=== PATIENT | male | born 1945 | race African-American/Black ===

== ENCOUNTER 2017-06-23 12:59 | Emergency (ER) | payer MEDICARE, OTHER ==
--- NOTE | 2017-06-23 14:15 | ER Document Report ---
ED General - General Mode of Arrival: Ambulatory Information source: Patient <BEN LANGSTON - Last Filed: 06/23/17 15:16> - General TRAVEL OUTSIDE OF THE [place] IN LAST 30 DAYS: No <CESAR SCALES - Last Filed: 06/23/17 16:25> - General Chief Complaint: High Blood Pressure Stated Complaint: BLOOD PRESSURE ISSUES Time Seen by Provider: 06/23/17 13:23 Notes: Patient is a 72 year old male presenting to the emergency department complaining of high blood pressure. Patient states he took his blood pressure this morning and found it to be extremley high and proceeded to come to the emergnecy room. Patient denies any symptoms. (BEN LANGSTON) Specifically denies any chest pain, blurred vision, headache, focal weakness. ( CESAR SCALES) - Related Data Allergies/Adverse Reactions: No Known Allergies Allergy (Verified 06/23/17 12:59) Past Medical History - General Information source: Patient - Social History Cigarette use (# per day): No Chew tobacco use (# tins/day): No Frequency of alcohol use: None Family History: Reviewed & Not Pertinent <BEN LANGSTON - Last Filed: 06/23/17 15:16> - Social History Smoking Status: Unknown if Ever Smoked Family History: Reviewed & Not Pertinent Patient has suicidal ideation: No Patient has homicidal ideation: No - Past Medical History Cardiac Medical History: Reports: Hx Hypertension Neurological Medical History: Reports: Hx Cerebrovascular Accident Renal/ Medical History: Denies: Hx Peritoneal Dialysis <CESAR SCALES - Last Filed: 06/23/17 16:25> Review of Systems - Review of Systems Constitutional: No symptoms reported EENT: No symptoms reported Cardiovascular: No symptoms reported Respiratory: No symptoms reported Gastrointestinal: No symptoms reported Genitourinary: No symptoms reported Male Genitourinary: No symptoms reported Musculoskeletal: No symptoms reported Skin: No symptoms reported Hematologic/Lymphatic: No symptoms reported Neurological/Psychological: No symptoms reported -: Yes All other systems reviewed and negative <BEN LANGSTON - Last Filed: 06/23/17 15:16> Physical Exam <BEN LANGSTON - Last Filed: 06/23/17 15:16> <CESAR SCALES - Last Filed: 06/23/17 16:25> - Vital signs Vitals: Temp Pulse Resp BP Pulse Ox 97.6 F 49 L 16 147/88 H 100 06/23/17 13:13 06/23/17 13:13 06/23/17 13:13 06/23/17 13:13 06/23/17 13:13 - Notes Notes: GENERAL: Alert, interacts well. No acute distress. HEAD: Normocephalic, atraumatic. EYES: Pupils equal, round, and reactive to light. Extraocular movements intact. ENT: Oral mucosa moist, tongue midline. NECK: Full range of motion. Supple. Trachea midline. LUNGS: Clear to auscultation bilaterally, no wheezes, rales, or rhonchi. No respiratory distress. HEART: Regular rate and rhythm. No murmurs, gallops, or rubs. ABDOMEN: Soft, non-tender. Non-distended. Bowel sounds present in all 4 quadrants. EXTREMITIES: Moves all 4 extremities spontaneously. Able to ambulate around the room. NEUROLOGICAL: Alert and oriented x3. Normal speech. PSYCH: Normal affect, normal mood. SKIN: Warm, dry, normal turgor. No rashes or lesions noted. (BEN LANGSTON) Course <BEN LANGSTON - Last Filed: 06/23/17 15:16> <CESAR SCALES - Last Filed: 06/23/17 16:25> - Re-evaluation Re-evalutation: 06/23/17 14:13 Asymptomatic hypertension, blood pressure is normalized without any intervention , only abnormal finding on physical exam is bradycardia, patient is aware that he has this however given his blood pressure issue and the fact is now normalized I think it is prudent to check an EKG, EKG was checked and reveals sinus bradycardia without any concerning blocks or delays. No evidence of ischemia. Patient will be discharged to home, asked to continue tracking his blood pressure, asked to return for any symptoms. Patient and friend at bedside in agreement. (CESAR SCALES) - Vital Signs Vital signs: Temp Pulse Resp BP Pulse Ox 97.6 F 48 L 16 146/105 H 100 06/23/17 14:27 06/23/17 14:27 06/23/17 13:13 06/23/17 14:27 06/23/17 14:27 - EKG Interpretation by Me Additional EKG results interpreted by me: 06/23/17 14:13 EKG shows sinus bradycardia at a rate of 44 bpm, left axis deviation, normal intervals, no ST segment elevations or depressions, no T-wave inversions per my interpretation. (CESAR SCALES) Discharge <BEN LANGSTON - Last Filed: 06/23/17 15:16> <CESAR SCALES - Last Filed: 06/23/17 16:25> - Discharge Clinical Impression: Asymptomatic hypertension, Sinus bradycardia Condition: Stable Disposition: HOME, SELF-CARE Additional Instructions: Please continue taking your blood pressure medications as prescribed. Please take your blood pressure every day as instructed by her doctor. Please give them the blood pressure records that you have been keeping, this may help them to further adjust your blood pressure medications. As you are not having any symptoms today there is no indication to acutely treat your blood pressure today. Please see your primary care physician within the next week to arrange a follow-up appointment for your elevated blood pressure. Should he develop any symptoms at any time such as headache, dizziness, chest pain, difficulty moving or any new or concerning symptoms please return to emergency department immediately. Referrals: ESTELLE TAVERA MD [Primary Care Provider] - Follow up in 1 week Scribe Attestation: 06/23/17 16:25 I personally performed the services described in the documentation, reviewed and edited the documentation which was dictated to the scribe in my presence, and it accurately records my words and actions. (CESAR SCALES) Scribe Documentation - Scribe Written by David:: David Hare, 06/23/2017 15:30 acting as scribe for :: Renny <BEN LANGSTON - Last Filed: 06/23/17 15:16>
[2017-06-23 14:28] VITALS: BP 146/105
--- NOTE | 2017-06-23 18:49 | EKG REPORT ---
SEVERITY:- ABNORMAL ECG - SINUS BRADYCARDIA LEFT AXIS DEVIATION = [facility] : Confirmed by: William Cha MD 23-Jun-2017 18:48:53
== END 2017-06-23 14:25 | disposition home or self-care (01) ==
LOC: ER 12:59
DX: I10 Essential (primary) hypertension (principal); R00.1 Bradycardia, unspecified
CPT/HCPCS: 93005; 93010; 99283

== ENCOUNTER → 2018-06-13 | Outpatient (CLI) | payer MEDICARE, OTHER | LOC: OD 11:11 | PROVIDERS: ATTEND Otolaryngology | DX: J30.9 Allergic rhinitis, unspecified (principal) | CPT/HCPCS: 36415; 82785; 86003 ==